=== PATIENT | male | born 1955 | race Caucasian/White ===

== ENCOUNTER 2020-01-25 01:18 | Emergency (ER) | payer BC ==
[~2020-01-25] VITALS: Ht 167.6 cm; Wt 57.6 kg
[2020-01-25] MEDS ORDERED: BIPOLAR MEDICATION (01:25)
[2020-01-25 02:06] LABS: BASOPHILS 0.7 % (0.0-2.0); HEMATOCRIT 33.6 % (42.0-52.0); HEMOGLOBIN 11.4 gm/dL (14.0-18.0); LYMPHOCYTES 28.4 % (24.0-44.0); MCH 31.1 pg (26.0-34.0); MCHC 33.9 g/dL (28.0-37.0); MONOCYTES 8.8 % (1.0-8.0); PLATELET COUNT 349 thou/uL (150-400); POLYS 61.1 % (36.0-66.0); RBC 3.65 mil/uL (4.50-6.00); RDW 14.8 % (10.5-14.5); WBC 8.2 thou/uL (4.0-11.0)
[2020-01-25 02:10] LABS: ANION GAP 4 mmol/L (7-16); BUN 31 mg/dL (7-18); CALCIUM 8.9 mg/dL (8.5-10.1); CHLORIDE 101 mmol/L (98-107); CO2 30 mmol/L (21-32); CREATININE 0.9 mg/dL (0.7-1.3); GLUCOSE 90 mg/dL (74-106); POTASSIUM 3.8 mmol/L (3.5-5.1); SODIUM 135 mmol/L (136-145)
[2020-01-25 02:12] LABS: URINE BILIRUBIN NEGATIVE (Negative); URINE BLOOD NEGATIVE (Negative); URINE CLARITY CLEAR; URINE COLOR YELLOW; URINE GLUCOSE-RANDOM* NEGATIVE (Negative); URINE KETONES NEGATIVE (Negative); URINE LEUKOCYTES-REFLEX NEGATIVE (Negative); URINE NITRITE-REFLEX NEGATIVE (Negative); URINE PROTEIN (DIPSTICK) NEGATIVE (Negative); URINE UROBILINOGEN 0.2 E.U./dl (0.2-1.0)
[2020-01-25 02:20] LABS: ALBUMIN 3.2 g/dL (3.4-5.0); SGOT 26 U/L (15-37); SGPT 30 U/L (30-65); TOTAL BILIRUBIN 0.2 mg/dL (0.2-1.0); TOTAL PROTEIN 6.2 g/dL (6.4-8.2); TROPONIN-I <0.06 ng/mL (<0.06)
[2020-01-25 02:56] VITALS: BP 120/67
--- NOTE | 2020-01-26 08:35 | EKG ---
[facility] [place] [address] ELECTROCARDIOGRAM REPORT Name: VINNIE SKY Room #: [facility]#: [id number] Admission: 01/25/20 Attend Phys: Discharge: 01/25/20 Date of : 51 Report #: [id number] THIS REPORT FOR: cc: [facility] - Clinic physician unknown [facility] - Clinic physician unknown Jose Edward MD [facility] ~ THIS REPORT FOR: //name// [facility] ED Test Date: 2020-01-25 Test Time: 01:38:01 Pat Name: VINNIE SKY Department: Room: Gender: M Supervisor Erection Shop: NO : 1955 Requested By: Srikanth Marshall Order Number: [id number] MD: Jose Edward Measurements Intervals [place] Rate: 80 P: 68 VA: 143 QRS: -26 QRSD: 120 T: 65 QT: 391 QTc: 451 Interpretive Statements Sinus rhythm Anterior Q waves, possibly due to LVH No previous ECG available for comparison Electronically Signed On 01-26-2020 8:34:57 CDT by Jose Edward [email or web address] <ELECTRONICALLY SIGNED> By: Jose Edward MD, [facility] 01/26/20 0834 0138 7 Jose Edward MD, [facility] /EPI
== END 2020-01-25 02:57 | disposition home or self-care (01) ==
LOC: ER 01:18
PROVIDERS: Emergency Medicine
DX: G62.9 Polyneuropathy, unspecified (principal); F32.9 Major depressive disorder, single episode, unspecified; F41.9 Anxiety disorder, unspecified; R42 Dizziness and giddiness; Z90.49 Acquired absence of other specified parts of digestive tract

== ENCOUNTER 2020-01-26 20:24 | Inpatient (IN) | payer BC ==
[~2020-01-26] VITALS: Ht 167.6 cm; Wt 59.2 kg
[~2020-01-26 20:24] MED LIST: BIPOLAR MEDICATION
[2020-01-26 20:26] VITALS: BP 109/59
[2020-01-26 21:12] LABS: URINE BILIRUBIN NEGATIVE (Negative); URINE BLOOD NEGATIVE (Negative); URINE CLARITY CLEAR; URINE COLOR YELLOW; URINE GLUCOSE-RANDOM* NEGATIVE (Negative); URINE KETONES NEGATIVE (Negative); URINE LEUKOCYTES-REFLEX NEGATIVE (Negative); URINE NITRITE-REFLEX NEGATIVE (Negative); URINE PROTEIN (DIPSTICK) NEGATIVE (Negative); URINE SPECIFIC GRAVITY 1.015 (1.005-1.035); URINE UROBILINOGEN 0.2 E.U./dl (0.2-1.0)
[2020-01-26 21:14] LABS: ABSOLUTE NEUTROPHILS 4.8 thou/uL (1.4-8.2); BASOPHILS 0.9 % (0.0-2.0); EOSINOPHILS 1.5 % (0.0-3.0); HEMOGLOBIN 11.2 gm/dL (14.0-18.0); LYMPHOCYTES 29.4 % (24.0-44.0); MCH 31.6 pg (26.0-34.0); MCHC 33.9 g/dL (28.0-37.0); MCV 93.1 fL (80.0-100.0); MONOCYTES 10.9 % (1.0-8.0); PLATELET COUNT 316 thou/uL (150-400); POLYS 57.3 % (36.0-66.0); RBC 3.55 mil/uL (4.50-6.00); WBC 8.4 thou/uL (4.0-11.0)
[2020-01-26 21:17] LABS: CALCIUM 8.9 mg/dL (8.5-10.1); CREATININE 1.2 mg/dL (0.7-1.3); POTASSIUM 3.7 mmol/L (3.5-5.1)
[2020-01-26 21:23] LABS: ALBUMIN 3.2 g/dL (3.4-5.0); TOTAL BILIRUBIN 0.2 mg/dL (0.2-1.0); TOTAL PROTEIN 6.3 g/dL (6.4-8.2)
--- NOTE | 2020-01-27 00:23 | NUR ---
MRS. SKY [phone]
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
[2020-01-27 07:30] VITALS: BP 110/63
--- NOTE | 2020-01-27 07:41 | EKG ---
[facility] [place] [address] ELECTROCARDIOGRAM REPORT Name: VINNIE SKY [facility] [id number] Admission: 01/27/20 Attend Phys: Darren Manzo DO Discharge: Date of : 51 Report #: [id number] THIS REPORT FOR: cc: Phil Hernandez MD, Jonathan MD Lundgren,Jose Burt MD [facility] ~ THIS REPORT FOR: //name// [facility] ED Test Date: 2020-01-26 Test Time: 21:13:06 Pat Name: VINNIE SKY Department: Room: [facility] Gender: M Services Coordinator: SOREN : 1955 Requested By: Srikanth Marshall Order Number: [id number] MD: Jose Edward Measurements Intervals [place] Rate: 74 P: 66 PA: 144 QRS: -22 QRSD: 124 T: 60 QT: 405 QTc: 450 Interpretive Statements Sinus rhythm Nonspecific intraventricular conduction delay Compared to ECG 01/25/2020 01:38:01 No significant change was found Electronically Signed On 01-27-2020 7:40:19 CDT by Jose Edward [email or web address] <ELECTRONICALLY SIGNED> By: Jose Edward MD, [facility] 01/27/20 0740 12 12 Jose Edward MD, [facility] /EPI
[2020-01-27 12:46] VITALS: BP 110/63
--- NOTE | 2020-01-27 12:58 | NUR ---
ASSUMED CARE AT 0700 TODAY. PT. UP, DRESSED AND ON THE UNIT. HE WILL INTERACT WITH STAFF UPON APPROACH ONLY. HE HAS BEEN SITTING ON THE UNIT, WATCHING TV AND SITTING ON THE SOFA. HE HAS POOR EYE CONTACT, LOOKING DOWN MUCH OF THE TIME. HIS AFFECT IS BLUNTED. MOOD BLAND. HE HAS BEEN PLEASANT AND COOPERATIVE WITH THIS RN. AT MEALS.
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
[2020-01-27 19:52] VITALS: BP 124/69
--- NOTE | 2020-01-27 23:09 | H ---
[facility] [place] [address] HISTORY AND PHYSICAL Name: VINNIE SKY Room #: 520A-A ADM IN M.R.#: [id number] Admission: 01/27/20 Attend Phys: Darren Manzo DO Discharge: Date of : 51 Report #: [id number] THIS REPORT FOR: cc: Phil Hernandez MD,Phil Manzo,Darren Burt DO ~ CC: Darren Hernandez Ezekiel Quinones DATE OF SERVICE: 01/27/2020 INPATIENT PSYCHIATRIC EVALUATION ATTENDING PHYSICIAN: Darren Manzo DO. PRODUCT SAFETY PROFESSIONAL: Umm Quiñones APRN and Guido Brock M.D. collaborator. REASON FOR ADMISSION: Severe jes. SOURCES OF INFORMATION: Interview with the patient, Emergency Room report. Of note, the patient was referred by a local psychiatrist, Dr. Marvin Shrestha. HISTORY OF PRESENT ILLNESS: This is a 64-year-old male, , who was brought by private vehicle yesterday evening for psychiatric evaluation at the request of Dr. Marvin Shrestha who is a psychiatrist here in [place], [place]. The patient reported he was "kind of out of control" and has been "doing things normal people don't do." He says he is walking a lot, not sleeping and disappearing. He describes 100-pound weight loss from 230 to 130 pounds over the last several months, though I do not have an exact timeline. His reported to the Emergency Room that he is at times delusional. She states he has had symptoms for 3 years, worsening over the last 3 months. Five days ago, he was started on 3 mg of Invega, which has now been increased to 12 mg. He says that he has doubled his sleeping time. He also states "I have always been in pain." In the ED and to me, he denied suicidal ideation, depression, fever, chills, night sweats or body aches. SURGICAL HISTORY: Includes cholecystectomy, abdominal rupture or tear 3 years of age. MEDICAL HISTORY: Colitis. PSYCHIATRIC HISTORY: Bipolar depression and anxiety. The patient has been noncompliant with outpatient medications. I do not have a good list of what has been tried, but he reports he has had trials and had [facility] [address] [place] [address] HISTORY AND PHYSICAL Name: VINNIE SKY Room #: 520A-A [facility] IN .R.#: [id number] Admission: 01/27/20 Attend Phys: Darren Manzo DO Discharge: Date of : 51 Report #: [id number] reactions adversely to lithium carbonate and Depakote. ALLERGIES: No known allergies. PRIMARY CARE PHYSICIAN: Unknown at this time. REVIEW OF SYSTEMS: From the Emergency Room: CONSTITUTIONAL: Denies fever or chills. EYES: Denies eye pain or visual change. HENT: Denies neck pain. RESPIRATORY: Denies cough or shortness of breath. CARDIOVASCULAR: Denies chest pain. GASTROINTESTINAL: Denies abdominal pain, nausea, vomiting or diarrhea. GENITOURINARY: Denies burning, frequency or dysuria. MUSCULOSKELETAL: Denies myalgias. SKIN: Denies rash. NEUROLOGIC: Denies weakness, headache or numbness. Otherwise, 10-point review of systems is negative. Weight is currently 56.84 kg, BMI 20.2. PHYSICAL EXAMINATION: In the ER grossly normal. He does have tattoos over bilateral extremities. Electrocardiogram was done in the ER. Results are as follows: Sinus rhythm, nonspecific intraventricular conduction delay, QTc 450, QT 405, MN interval 144 milliseconds, ventricular rate of 74. 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 FAMILY HISTORY: reports 2 children, 2 boys, 1 from cancer at age 33. Did not yet, but I do have reason to believe there is a family history of bipolar illness. LABORATORY DATA: The patient's laboratories are from the ER: He does have a significant anemia with hemoglobin 11.2 and 33.0, white count 8.4, platelet count 316. He believes that may be for nutrition. He denies signs of bleeding, but I do not believe a Hemoccult was done. Electrolytes: Sodium 136, potassium 3.7, chloride 101, bicarbonate 25, anion gap 10, BUN 32, creatinine 1.2, estimated GFR 61, glucose 168, calcium 8.9, total bilirubin 0.2, AST 27, ALT 31, alkaline phosphatase 80, total protein 6.3, albumin 3.2. Urinalysis was negative. [facility] [address] [place] [address] HISTORY AND PHYSICAL Name: VINNIE SKY Room #: 520A-A ADM IN M..#: [id number] Admission: 01/27/20 Attend Phys: Darren Manzo, Discharge: Date of : 51 Report #: [id number] Only medication over the last night was 2 mg p.o. b.i.d. of risperidone. He denies medications for any chronic illnesses. Physical examination, normal gait and station. Fair hygiene. MENTAL STATUS EXAMINATION: This is a well-developed male with poor speech. Attention intact. Concentration intact. Speech, increased rate, normal volume, normal tone. Thought process, linear and goal directed. Thought content, focused on getting on the "right medication." Denied suicidal intent or plan. Denied homicidal intent or plan. Denied hopelessness, helplessness. Memory not formally tested. Insight limited. Judgment fair. Fund of knowledge at least average. FORMULATION: A 64-year-old male presenting for acute jes. DIAGNOSES: At this time, bipolar 1 disorder, most recent episode manic, severe with psychotic features. CRIMINAL JUSTICE HISTORY: He has several arrests for trespassing. During this period of jes, I believe the last 6 months, states he has requested to change the venue from [place] to [facility]- he reported he would get fairer judges/trial in [facility]. PLAN: Evaluate, stabilize, obtain collateral. He is a voluntary patient. Start Tegretol-XR 200 mg p.o. b.i.d., first dose tonight at 9:00 p.m. Continue risperidone 2 mg p.o. b.i.d. I will be on vacation in the next several days. I would like provider covering for me to contact his for additional information. We will monitor sleep and appetite closely. He is a full code. STRENGTHS: He is insured. He has a fair degree of intelligence. WEAKNESSES: Chronic mental illness, medication noncompliance. <ELECTRONICALLY SIGNED> By: Darren Manzo DO 01/27/20 0009 [id number] Darren Manzo DO /nt
[2020-01-28 10:04] VITALS: BP 116/71
--- NOTE | 2020-01-28 11:25 | NUR ---
Pt's Gracie contacted FARHAD in tears because pt told her that he is discharging today. SW told Gracie she has not heard that for herself. Gracie said pt has been doing several things such as buying many cars; he just bought a 2019 Chevy Blazer on either Saturday or Saturday. It is still at the dealership. She said she does not know where he is getting this money from. FARHAD advised her to call the dealership and tell them where her is and why. They may undo that purchase because it is also in a short amount of time, and the car is still in their posession. She talked about pt walking for hours and taking her 8.5 year old dog out in the eat for hours, and allowing the dog to run free. She said she lives in fear everyday because pt does random things and makes random purchases when he is manic. She said she has been caring for pt for over 20 years. FARHAD advised that while she cannot tell her what to do about her marriage, she advised that she should care for herself first; she cannot take care of pt if she is not cared for. Gracie agreed. She said she has filed for divorce and has not rescinded it. She did say she would like to speak with the Dr. FARHAD provided an update to Dr. Pratt. FARHAD team will continue to follow pt during his stay on this unit.
--- NOTE | 2020-01-28 11:35 | NUR ---
Pt has displayed a variety of manic behaviors and thinking this morning during group and milieu interactions. He has gathered the patients to sign a "petition" on a paper trash bag stating, "we want out." He has also begun a chant in the day room. Pt is later heard planning a "alliance party" in which he is going to invite the entire unit to at his house- says he has a movie theatre in his basement. He then explains that he is only on the unit voluntarily due to his anger "issues", explaining that he hurt his , also pointing out how fit he is, flexing his biceps in the process. He believes he is going to discharge from the unit today.
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
[2020-01-28 19:37] VITALS: BP 115/67
[2020-01-28 21:00] VITALS: BP 115/67
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
[2020-01-29 07:56] VITALS: BP 117/79; BP 119/76
--- NOTE | 2020-01-29 09:41 | NUR ---
0700 ASSUMED CARE OF PATIENT, PATIENT UP AMB IN ROOM. PATIENT OBSERVED WITH LATEX GLOVES ON, PATRIOT MISSILE AIR DEFENSE ARTILLERY ASKS PATIENT TO REMOVE AND PATIENT IS COOPERATIVE. PATIENT TO DAYROOM FOR BREAKFAST, SITS WITH PEERS AND COMMUNICATES WELL. PATIENT OBSERVED INTERRUPTING ANOTHER PATIENTS CONVERSATION WITH THE NURSE AND PATRIOT MISSILE AIR DEFENSE ARTILLERY ASKED PATIENT TO PLEASE NOT INTERRUPT. PATIENT IS EASILY REDIRECTABLE. PATIENT CURRENTLY ATTENDING GROUP.
--- NOTE | 2020-01-29 12:49 | NUR ---
FARHAD contacted Zoey Campos with [employer] at [phone]; they would like to be involved in pt's care and case management. She gave FARHAD her fax number of [phone] to fax discharge documents. FARHAD team will continue to follow pt during his stay on this unit.
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
--- NOTE | 2020-01-29 19:19 | NUR ---
PATIENT SPOKE WITH SW AND TODAY. REQUESTS NO PHONE CALLS TILL FURTHER NOTICE. PATIENT DID GET UPSET WHEN TOLD NO PHONE. PATIENT IN ROOM WITH ROOMMATE AND BOTH TALKING ABOUT HOW THEY HAVE RIGHTS AND WANTING TO CALL 911. PATIENT NOTED TODAY HELPING OTHER AND PUSHING PATIENTS IN WC. PATIENT ASKED NOT TO PUSH PATIENTS AROUND. PATIENT IS EASILY REDIRECTABLE MOST OF THE TIME. REPORT GIVEN TO NEXT SHIFT
[2020-01-29 19:37] VITALS: BP 104/62
--- NOTE | 2020-01-30 05:39 | NUR ---
Assumed care of pt @ 1900. Pt calm et cooperative but continues to be attention seeking, manipulative, staff splitting, et intrusive. Pt took medications whole without difficulty. Ambulates the halls ad enrique with steady gait. Pt went to several staff members asking to use the phone this shift when he had already been informed by previous shift that he was not allowed to use the phone. Pt awakened at 0300 et stated that he could not go back to sleep. Pt was encouraged to return to bed but continued to ask staff for paper, pencils, puzzles, etc. VSWNL. Health assessment with no abnormalities other than previously noted. Denies SI/HI. Currently sitting in dayroom at table doodling on paper. Will continue to monitor per protocol.
[2020-01-30 08:21] VITALS: BP 123/80
--- NOTE | 2020-01-30 10:12 | NUR ---
0645 APON ARRIVAL TO UNIT PATIENT ASKS FOR PHONE AND RN RADIATION ONCOLOGY EXPLAINS TO PATIENT WE DO NOT ALLOW CALLS TO BE DONE TILL AFTER BREAKFAST. PATIENT STATES HE WILL USE IT AFTER BREAKFAST. PATIENT WAS REMINDED ABOUT AGREEMENT WITH SW ABOUT NO PHOEN USE. PATIENT STARTS CURSING AND YELLING HOW HE HAS A RIGHT TO USE THE PHONE AND CALL HIS . PATIENT TO DAYROOM AND SITS IN CHAIR SINGING AND HAPPY. PATIENT TAKES MEDICATION WHOLE WITHOUT DIFFICULTY. RN RADIATION ONCOLOGY OBSERVED PATIENT BEING INTRUSIVE WITH OTHER PEERS. RN RADIATION ONCOLOGY OBSERVED PATIENT WITH PHONE AND PATIENT HAD CALLED HIS . RN RADIATION ONCOLOGY RECIEVED CALL FROM AND EXPRESSED HOW ALL OF THIS HURTS HER AND HOW HARD THIS IS. RN RADIATION ONCOLOGY APPOLIGIZED FOR THE PHONE CALL SHE RECIEVED. 0920 ASSESSMENT COMPLETED . PATIENT STATES GOAL FOR TODAY IS TO HELP OTHER AND MEET NEW PEOPLE. PATIENT STATES CONCERN IS CONTROLING HIS ANGER. PT STATES "I KNOW I CALLED MY AND GOT MADE AND HAD A BLOWOUT WITH HER, IM TRYING TO CONTROL MY ANGER". PATIENT AND RN RADIATION ONCOLOGY DISCUSED THE PHONE PLAN AND PATIENT IS AWARE AND KNOWS HE IS NOT TO USE THE PHONE. WILL CONTINUE TO OBSERVE.
--- NOTE | 2020-01-30 11:44 | NUR ---
PATIENT GIVEN HALDOL 5MG IM FOR INCREASED AGITAION. PATIENT AT NURSES STATION HITTING ON GLASS AND YELLING WHEN HE WAS TOLD HE COULD NOT USE PHONE. PATIENT YELLING "I HAVE RIGHTS AND I WANT TO USE THE PHONE". YARD FOREMAN WAS ASSISTED BY STAFF X2 IN PATIENTS ROOM FOR INJECTION. WILL CONTINUE TO OBSERVE.
--- NOTE | 2020-01-30 18:34 | NUR ---
PATIENT SLEPT AFTER IM HALDOL AND WHEN PATIENT GOT UP PATIENT WALKING AROUND SAY HE WILL NOT TAKE MEDICATIONS AND STAFF WOULD HAVE TO GIVE HIM SHOTS. AFTER TALKING TO PATIENT, PATIENT HAD CALMED DOWN AND WAS WILLING TO TAKE HIS MEDS. SPOKE WITH PATIENTS TODAY AND EMAILED DPOA PAPER WORK OVER AND COPY HAS BEEN PLACED IN CHART. ALSO WANTED TO REPORT TO STAFF THAT ALCOHOL WAS FOUND HIDDEN IN HOUSE (CINNAMON WHISKY) IN PATIENTS ITEMS. PATIENT HAS BEEN CALM AT THIS TIME.
[2020-01-30 19:47] VITALS: BP 103/64
--- NOTE | 2020-01-31 00:15 | NUR ---
Pt was in the dayroom at time of assessment. Pt was cooperative with assessment. Pt denies anxiety and/or depression. Pt denies SI/HI. Pt took meds whole. Pt had urine on his shoes and socks. Unsure how he got them. Socks changed. Pant washed. Pt cleaned up. After about 2200, pt went in to have a shower. Nursing notified pt that its too late to have a shower. Pt informed pt to go to sleep. Pt was irritated and frustrated but obeyed. Pt currently in bed sleeping. Will continue to monitor.
--- NOTE | 2020-01-31 06:42 | NUR ---
Patient up this AM, angry. Verbally aggressive, threatening and demeaning to staff. Patient extremely labile. At one moment cursing at staff, the next smiling/laughing/singing. Patient upset about not being able to shave during morning rounds. Upset because he feels that each patient is not cared for. Intrusive with staff and peers.
[2020-01-31 09:06] VITALS: BP 116/71
--- NOTE | 2020-01-31 11:15 | NUR ---
Assumed care 0700. Denies SI/HI/AH/VH. Ambulates well, steady gait. Has blister left thumb, no indication of fluid filled. Denies complaints of pain after Tylenol took effect.
--- NOTE | 2020-01-31 18:20 | NUR ---
Became belligerent, argumentative, loud, angry verbal exchange with other patients, threatening violence. given Haldol 5 mg PO- PRN and stay in room until evaluated by the night nurse. He complied.
[2020-01-31 20:01] VITALS: BP 112/61
[2020-02-01 06:48] LABS: ABSOLUTE NEUTROPHILS 2.7 thou/uL (1.4-8.2); BASOPHILS 0.7 % (0.0-2.0); EOSINOPHILS 1.9 % (0.0-3.0); HEMOGLOBIN 12.1 gm/dL (14.0-18.0); LYMPHOCYTES 35.6 % (24.0-44.0); MCH 30.6 pg (26.0-34.0); MCHC 32.7 g/dL (28.0-37.0); MCV 93.6 fL (80.0-100.0); MONOCYTES 8.9 % (1.0-8.0); PLATELET COUNT 331 thou/uL (150-400); POLYS 52.9 % (36.0-66.0); RBC 3.96 mil/uL (4.50-6.00); RDW 15.4 % (10.5-14.5); WBC 5.2 thou/uL (4.0-11.0)
[2020-02-01 07:25] VITALS: BP 103/65
[2020-02-01 07:43] LABS: ALBUMIN 3.2 g/dL (3.4-5.0); CALCIUM 8.8 mg/dL (8.5-10.1); CREATININE 0.9 mg/dL (0.7-1.3); POTASSIUM 4.2 mmol/L (3.5-5.1); TOTAL BILIRUBIN 0.2 mg/dL (0.2-1.0); TOTAL PROTEIN 6.7 g/dL (6.4-8.2)
[2020-02-01 11:18] VITALS: BP 103/65
--- NOTE | 2020-02-01 12:01 | NUR ---
In tx team FARHAD was asked to schedule a family meeting for pt. FARHAD also was asked by Dr. Manzo to complete a SLUMS on patient. FARHAD received a call from Gracie Gillette asking for an update. FARHAD provided this update and scheduled a family meeting to occur in person on 02/01 @10:30. Gracie said pt does things like threaten to come home; staff did not know that pt was not to call Gracie this weekend and pt called her Saturday morning demanding her to bring him things. She refused to do so and pt became upset. Per Dr. Manzo, FARHAD advised Gracie do not have contact with pt for a min. of another 24 hours to give both pt and a cooling off period while he is being treated. She said she will do so. FARHAD completed a SLUMS with pt; pt scored 25/30. SW team will continue to follow pt during his stay on this unit.
--- NOTE | 2020-02-01 15:06 | NUR ---
1500 RESUMMED CARE FROM OVERNIGHT SHIFT THIS AM, PATIENT UP IN DAY ROOM CHATTING WITH OTHER PATIENTS. PATIENT TOOK MEDICATION WITHOUT INCIDENCE DENIES SI/HI/AH/VH AT PRESENT. PATIENTS ABDOMEN SOFT ROUND BOWEL SOUNDS PRESENT LUNGS CLEAR. PATIENT COOPERATIVE VERY FRIENDLY WITH OTHER PATIENTS WANTS TO DISCHARGE SOON PATIENT PARTICIPATES IN GROUP. WILL CONTINUE TO MONITOR PATIENT FOR SAFETY AND BEHAVIORS.
[2020-02-01 21:00] VITALS: BP 103/65
--- NOTE | 2020-02-02 00:37 | NUR ---
PATIENT CAME TO [facility] UNIT AT 2230 BY WC. HE IS A/OX2 AND FORGETFUL. HE WAS CALM AND COOPERATIVE. ASSESSMENT DONE AND WNL. LUNGS CTA BILATERALLY, HRR, ABDOMEN SOFT AND NON TENDER WITH POSITIVE BOWELSOUNDS. LBM 01/31/20 PER PATIENT. NO EDEMA NOTED. NO WOUNDS. SKIN INTACT. PATIENT DENIES PAIN. PATIENT AMBULATES WITH WALKER. HE DOES ADMIT THAT HE FORGETS TO USE IT ALOT. PATIENT IS COMING TO US FROM [facility]. HE WAS SENT TO US FOR SEXUAL INAPPROPRIATENESS WITH STAFF. HE WAS GRABBING STAFF'S GENITALS AND BECOMING AGGRESSIVE AND AGITATED. PATIENT'S DAUGHTER SEVERIANO GILBERT IS DPOA . A MESSAGE WAS LEFT ON HER VM TO CALL BACK TO CONSENT FOR TREATMENT. PATIENT IS A DNR. PATIENT WAS GIVEN A SNACK WHEN HE CAME TO UNIT AND HE ATE TILL HE WAS FULL. PATIENT HAS STEADY GAIT WHEN UP WITH WALKER. HE IS CONTINENT. NEW ORDERS RECEIVED BY WILTON MISHRA NP AND CARRIED OUT. Bertha JOHNSON NP FOR DR UMANA'S GROUP WAS NOTIFIED BY PHONE AND SPOKE WITH HER REGARDING NEW ADMIT. PATIENT IS UP WALKING THE HALLS D/T NOT TIRED. ORDER RECEIVED FOR TRAZADONE 25MG PO MAY REPEAT X1 AT HS. WILL CONTINUE TO MONITOR.
--- NOTE | 2020-02-02 07:48 | NUR ---
PATIENT HAS BEEN CALM AND COOPERATIVE. HE WAS UP WITH S/S OF GERD AND [place] 15CC GIVEN. HE DOES NOT HAVE A REGULAR MED FOR GERD AT THIS TIME BUT MAY BE GOOD TO BE CONSIDERED. PATIENT AMBULATES AND IS STEADY ON FEET. PATIENT UP IN DINING ROOM AT THIS TIME.
[2020-02-02 11:35] VITALS: BP 115/67
--- NOTE | 2020-02-02 12:53 | NUR ---
Up ambulating in unit without s/o distress. Alert and orientated X4. Denies SI/HI. Wants staff to call to request clothes. No other concerns. Breath sounds clear t/o. Reg HR auscultated. Color pink with brisk capillary refill and palpable peripheral pulses. Independent with voiding. Active bowel sounds over soft, rounded abdomen. States he had BM this AM. Skin healing on thumb, gentamycin ointment applied. called with clothes request. Plans on attending family mtg at 1030.
--- NOTE | 2020-02-02 13:05 | NUR ---
SW attended a family meeting with pt, his , and Dr. Manzo. Pt's current med regime was discussed. 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 Pt and his confessed that he has spent well over $100,000 in the past 6 months. Pt does not remember buying 2 other cars in addition to the 2019 RESPACE. Discharge was discussed to occur between -Saturday. Pt's will come back to the hospital and see if he tx has been successful enough to have him return.
--- NOTE | 2020-02-03 00:25 | NUR ---
Care assumed of patient at 1915: Patient wandering about the halls, bedroom and dayroom at start of shift. Patient hyperactive at times, impulsive with movements. Patient alert and oriented x4. Patient has rapid speech observed at times but is organized. Patient attempting to help several peers with ADLs cares and needed reminders on notifying staff. Patient singing loudly at random times for no apparent reason. Patient appears overly happy, smiling and dancing at times. Patient denies SI/HI/AH/VH. Denies depression and anxiety. Patient took HS medication whole without difficulty. Patient manipulative with staff regarding HS snack. Patient observed to have received 3 different HS snacks by 3 different staff members. No verbal aggression or threatening behaviors observed. Patient changed clothing and was observed to be rapidly pacing the hallways until approximately 2300. Patient encouraged to lay in bed and try to get some rest. Patient resting quietly in bed at this time.
[2020-02-03 08:00] VITALS: BP 124/80
--- NOTE | 2020-02-03 08:35 | NUR ---
PT WAIVING AT NURSES THIS AM AT DESK. PT IN A CHEERFUL MOOD. PT STATED HE WANTED TO PARTICIPATE IN GROUP TODAY. PT SINGING WITH OTHER RESIDENTS. PT TOOK MEDS WITHOUT ANY ISSUES. PT LUNGS CLEAR.
[2020-02-03 09:19] VITALS: BP 124/80
--- NOTE | 2020-02-03 11:20 | NUR ---
TALKED TO HIS JACOB. SHE SAYS NORMALY HIS BEHAVIOR IS TOO HIMSELF AND NOT HELPFUL TO OTHERS. SHE SAYS THAT SHE DOESN'T WANT HIM BACK IF HE IS NOT BETTER. SHE SAYS HE HAS BURNED BRIDGES WITH OTHER FAMILY. HE HAS A 7 AND 9 YEAR OLD THAT HE IS UNABLE TO TALK TOO DUE TO EXPARTE. JACOB ALSO HAD EXPARTE ON HIM, SHE CANCELED IT TO HELP HIM.
--- NOTE | 2020-02-03 11:36 | NUR ---
Pt came to FARHAD this morning stating that he wants to leave and that he has had enough treatment. SW brought him into her office and talked to him about his goals including MH court. FARHAD reminded him that he has to remain compliant in tx and get properly medicated to qualify for MH court. Pt agreed. He said he will stay. FARHAD reminded him of the plan to discharge Saturday - Saturday. He said he would rather leave Saturday. FARHAD told him she understood, but that he should wait until he hears from the doctor. SW team will continue to follow pt during his stay on this unit.
--- NOTE | 2020-02-03 11:51 | NUR ---
Emeka was present in recreation therapy group this morning. He continues to display various manic and hyperactive behaviors- unable to sit still in seat, talking over peers and bouncing from one topic to the next. He verbalized believing that he has found and is housing the skull of the "predator" from the movie. He also explained his belief that there are aliens on earth that came from [place] after the planet was no long inhabitable.
--- NOTE | 2020-02-03 11:55 | NUR ---
PT WRITING NOTES TO STAFF SAYING HE IS READY TO GO. 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 HE SAID HE GOT HIS SOCIAL SECURITY CHECK TODAY AND HE CAN STAY IN A HOTEL. PT SAID HE SEEN ANOTHER PT DISCHARGE AND SAID IF HE GOES THEN I CAN GO TOO.
--- NOTE | 2020-02-03 12:07 | NUR ---
RT Progress Note- Emeka Guzman" is very active in milieu and structured recreation therapy groups. Moreno has befriended various patients on the unit and is at times "overly" helpful- pushing their wheelchairs, announcing their needs, retrieving various items. He displays hyperactive and manic behaviors such as difficulty sitting still in groups, talking over peers, random outbursts of song and dance, etc. At times patient can be grounded and express understanding and insight in to the severity of his illness- even becoming tearful.
--- NOTE | 2020-02-03 14:43 | NUR ---
tHIS COUNTER SERVER WAS PAGED TO COME TO 5S TO NOTARIZE DOCUMENT REGARDING THIS PATIENT FOR A 36 HOUR HOLD.
--- NOTE | 2020-02-03 15:00 | NUR ---
DID TALK TO ABOUT HOW THIS PATIENT IS. SHE STATED NORMALY HE STICKS TO HIMSELF AND IS NOT HELPFUL TO OTHER PEOPLE OR GETTING INTO THEIR BUISNESS. SHE SAYS HE LIKES TO SPEND MONEY AND IS SNEAKY ABOUT IT.
[2020-02-03 20:13] VITALS: BP 128/72
--- NOTE | 2020-02-04 01:26 | NUR ---
Care assumed of patient at 1915: Patient hyperactive and moving about the dayroom, hallways and his bedroom at start of shift. Patient observed sitting with several different peers. One peer was upset and verbalize concerns. This patient appeared to be instigating other peers anger and assisted with starting a chant. Patient has been attention seeking at times. Coming to the nurses station, interupting others, singing loudly, dancing. Patient observed assisting his roomate with ADL cares. This patient needed re-direction to notify staff and allow for staff to assist other peers. Patient apologetic, stated "oh, I know" then continued to assist roomate. This patient was asked to leave the room while ADL cares were completed with roomate. Patient denies SI/HI/AH/VH. 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 Patient stated that he discussed this with dayshift nurse so he can "start in the morning". Patient intrusive with other peers and staff. Needing several reminders on respecting boundaries. Patient manipulative with snack time, yet again. Received 4 different snacks from 4 different staff members. Nurse approached patient with HS medication. Patient stated he needed something to eat before he took his medication. Nurse informed patient that he had already had 4 different snacks. Patient stated "oh ya, I forgot" then took medication. Patient has been able to sleep for approximately 45 minutes then is up pacing from dayroom to bedroom. Once he is re-directed back to bed, patient is able to fall asleep rather quickly. Patient denies anxiety and depression. Smiles rather largely and states "I'm Great!".
--- NOTE | 2020-02-04 10:47 | NUR ---
Moreno was walking by a peer. The peer was c/o of pain. Moreno stated "Maybe you need to have an MRI." I asked him if he was a phyisican. He stated "no". I asked him not to give medical advice. He stated "I wasn't giving medical advice, I was given personal advice. I have had MRI's before."
--- NOTE | 2020-02-04 10:59 | NUR ---
FARHAD contacted Alyssa with [facility] to provide an update on pt. FARHAD also suggested pt attend grief and loss classes while he is in their program. SW team will continue to follow pt during his stay on this unit.
[2020-02-04 14:13] VITALS: BP 128/72
[2020-02-04 16:21] VITALS: BP 109/68
--- NOTE | 2020-02-04 17:22 | NUR ---
ASSUMED CARE AT 0700 THIS MORNING. PT. UP IN SHORTS AND T-SHIRT. HE HANDED THIS RN A NOTE STATING HE WANTS HIS TO BRING HIM MORE CLOTHING. REQUEST DENIED HE HAD CLOTHING IN THE DRYER. HE WAITED FOR THE CLOTHING TO DRY AND CHANGED HIS CLOTHING. HE AGAIN REQUESTED AT SUPPER TIME FOR US TO CALL HIS FOR A NEW CHANGE OF CLOTHING. HE WAS REMINDED HE HAD CHANGED CLOTHES TO CLEAN CLOTHING TODAY. HE STATED, "NOW THEY ARE BOTH DIRTY". HE WAS INFORMED WE CAN WASH THE ONES HE TOOK OFF THIS MORNING. HE TOOK HIS MEDICATIONS WITHOUT DIFFICULTIES NOTED. THIS MORNING HE WAS CAUGHT ATTEMPTING TO INSTIGATE OTHER PATIENTS TO CAUSE PROBLEMS WITH STAFF. THIS RN TOLD HIM THIS WAS INAPPROPRIATE AND HE NEEDED TO STOP THE BEHAVIORS. HE DID STOP AFTER BEING TOLD TIMES TWO TO STOP BY STAFF.
[2020-02-04 19:17] VITALS: BP 113/74
--- NOTE | 2020-02-05 00:26 | NUR ---
Care assumed of patient at 1915: Patient seated in dayroom at start of shift. Patient pacing several times from his room to the dayroom and about in the hallways. Patient intrusive with other peers and staff. Patient going into other peer rooms despite being re-directed to stay out of peer rooms. Patient alert and oriented x3, disoriented on current time. Denies pain or discomfort. When asked how he was feeling, patient stated "I'm great, just parcel post clerk!" with a big smile and great attitude. Several minutes later, patient was re-directed out of another peers room when he became agitated, yelling and cursing. Patient has been labile this evening, more restless than the last 2 nights. Patient took HS medication whole without difficulty. Less manipulative this evening. Ate 100% HS snack. Patient retired to bed at a reasonable hour and appeared to be resting quietly. Patient was soon awake and slammed his door shut. Nurse opened door and provided education on leaving door cracked open. Patient said "I understand but then started to yell at nurse". Patient has been up and down several times this evening. When patient gets up, he hands nurse a new hand written note. One note was for the nurse to call his to "ask about clothes, and toothpaste and mouthwash. I have a 10:00 appointment with Kanika and the sports attorney. Moreno Lassiter". Patient was observed pacing the halls when he hit another peers door that was cracked, causing it to slam open. Patient re-directed that he could not be disturbing other peers, especially while they were sleeping. Patient became angry, yelling, denying that he did anything wrong. Patient was then asked to stay in his room or in the dayroom only. Patient then went to his room and slammed the door. Patient later observed pacing the halls around 0, singing loudly and disturbing the mileau, required re-direction. Patient appears to be laying in bed quietly at this time.
[2020-02-05 07:15] VITALS: BP 116/75
--- NOTE | 2020-02-05 11:41 | NUR ---
HAS BEEN COOPERATIVE WITH REQUESTS FROM STAFF THIS AM-FULL RANGE AFFECT IS MILDLY HYPERVERBAL,CIRCUMSTANTIAL AT TIMES BUT IMPROVED FROM PREVIOUS SHIFTS. NEEDS REMINDERS TO NOT BE EXCESSIVLY CARETAKING OF PEERS. IS COMPLIENT WITH REQUESTS FROM STAFF WITHOUT RESISTANCE. DENIES C/O PAIN/DISCOMFORT. DENIES SI/SH/HI. ATTENDING SCHEDULED ACTICITES. NO NOTED OR REPORTED PSYCHOSIS/OR ACUTE ANXIETY. GAIT STEADY WITHOUT ASSISTIVE DEVICES.
--- NOTE | 2020-02-05 13:26 | NUR ---
In tx team pt's behavior from last night was discussed. At that time, Dr. Manzo decided that filing a petition for a 21 day stay is appropiate. FARHAD completed documents for a 21 day stay for pt; FARHAD faxed documents to Bj Sheppard and to the court house. SW provided pt's with an update. FARHAD and the RT staff went to pt and provided him and update on what happened. When pt became slightly upset, FARHAD explained that this does not mean he will be here 21 days, but that the doctor believes he will benefit from that. She explained the courts will decide if he is an appropiate candidate. Pt said "I'm not staying here 21 days." He became calm and got ready to attend group therapy. SW team will continue to follow pt during his stay on this unit.
[2020-02-05 20:00] VITALS: BP 92/58
--- NOTE | 2020-02-06 02:39 | NUR ---
Care assumed of patient at 1915: Patient speaking with MD at start of shift. MD and patient approached this nurse asking if his clothing could be washed tonight. Nurse asked patient to place his clothing on the window seal and during the night, his clothes would be washed. Patient became fixated on his clothes being washed and asked several staff members to wash his clothing. Reminded that this nurse would wash them. Patient jovial and happy. Less intrusive with peers and staff this evening. Patient took HS medication whole without difficulty. Ate 100% HS snack. No incontinent episodes of bladder observed thus far this shift. Patient denied pain or discomfort. Denies SI/HI/AH/VH. Denies anxiety and depression. Patient expansive with thoughts when asked about pain or depression. Patient saw a suitcase behind the nurses station and asked several people if that was his, did his bring it for him. Patient has been able to sleep for longer periods this shift. Each time patient wakes up, he comes to the dayroom, speaks to all staff present, sits in a chair for a few minutes, then returns back to bed. Patient laundry has been completed and is in his room.
[2020-02-06 07:50] VITALS: BP 113/69
[2020-02-06 10:25] VITALS: BP 113/69
--- NOTE | 2020-02-06 12:38 | NUR ---
1200 RESUMMED CARE FROM OVERNIGHT SHIFT THIS AM, PATIENT IN ROOM GETTING HYGIENE DONE FOR BREAKFAST. PATIENT ATE BREAKFAST TOOK MEDICATION WITHOUT INCIDENCE. PATIENTS ABDOMEN SOFT ROUND BOWEL SOUNDS PRESENT PATIENT HAD A BOWEL MOVEMENT THIS AM. PATIENTS LUNGS CLEAR DENIES SI/HI/AH/VH AT PRESENT, PATIENTS CALLED TO CHECK ON PATIENT AND TO CHECK ABOUT HIS COURT DATE. PATIENT SENT A PAIR OF BLUE JEANS AND BLUE AND WHITE SHIRT AND A PAIR OF LOVE TRIMMED WITH BLACK TO THE ER. BELONGINGS ADDED TO PROPERTY SHEET, PATIENT LESS ANXIOUS CALM INTERACTS WITH OTHER PATIENTS. WILL CONTINUE TO MONITOR PATIENT FOR SAFETY AND BEHAVIORS.
--- NOTE | 2020-02-07 02:36 | NUR ---
02-06-20 CARE TRANSFERED 1914 PT SITTING IN DAY ROOM WATCHING TV. 1940 PT AAOX3 SITTING IN DAY ROOM, PT CLAM AND COOPERATIVE THROUGHOUT NURSING ASSESSMENT. VSS, RR EVEN AND NONLABORED ON RA; PT DENIES SI/SH/HI/VAH AND PAIN AT THIS TIME. PT HAD ZERO ISSUES DURING MEDICATION ADMIN. OF NOTE, PLEASE REFER TO NURSING INTERVENTIONS FOR MORE INFORMATION. ZERO ACUTE DISTRESS NOTED. WILL CONTINUE TO MONITOR PER [facility] UN[facility] PROTOCOL.
[2020-02-07 08:58] VITALS: BP 113/68
[2020-02-07 20:02] VITALS: BP 111/63
[2020-02-07 22:00] VITALS: BP 111/63
--- NOTE | 2020-02-08 00:34 | NUR ---
Assumed care of patient this pm shift. Patient in good spirits, calm and cooperative. Patient is medication adherent. Patient takes medications whole with thin fluids. Patient is continent of bowel and bladder. Patient is alert and oriented x4. Patient is ambulatory with a steady gait. Patient denies pain. Patient denies hi/si. Patients assessment shows no signs of acute distress. Patient is very neat and clean and has his clothes laundered frequently. We will continue to monitor per hospital protocol.
[2020-02-08 06:02] LABS: EOSINOPHILS 1.9 % (0.0-3.0); HEMATOCRIT 36.9 % (42.0-52.0); HEMOGLOBIN 12.5 gm/dL (14.0-18.0); LYMPHOCYTES 29.2 % (24.0-44.0); MCH 31.3 pg (26.0-34.0); MCHC 33.8 g/dL (28.0-37.0); MCV 92.6 fL (80.0-100.0); MONOCYTES 9.9 % (1.0-8.0); PLATELET COUNT 375 thou/uL (150-400); RBC 3.99 mil/uL (4.50-6.00); WBC 6.9 thou/uL (4.0-11.0)
[2020-02-08 06:26] LABS: ALBUMIN 3.2 g/dL (3.4-5.0); CALCIUM 8.7 mg/dL (8.5-10.1); PHOSPHORUS 3.5 mg/dL (2.5-4.9); POTASSIUM 3.9 mmol/L (3.5-5.1); TOTAL BILIRUBIN 0.1 mg/dL (0.2-1.0); TOTAL PROTEIN 6.5 g/dL (6.4-8.2)
[2020-02-08 06:41] LABS: TSH 2.484 uIU/mL (0.358-3.740)
[2020-02-08 07:45] VITALS: BP 103/67; BP 154/84
[2020-02-08 10:17] VITALS: BP 103/67
--- NOTE | 2020-02-08 12:14 | NUR ---
Followup 02/07: consistently eating 100% of meals and wt up 5 lb since admission to [facility] following previous reported 100 lb loss. Started on B12 supplementation for level 424 and vitamin D pending. Will change nutrition status to low risk
--- NOTE | 2020-02-08 13:07 | NUR ---
1230RESUMMED CARE FROM OVERNIGHT SHIFT THIS AM, PATIENT IN DAY ROOM TALKING WITH OTHER PATIENTS. PATIEENT ATE BREAKFAST TOOK MEDICATION WITHOUT INCIDENCE. PATIENT DENIES SI/HI/AH/VH AT PRESENT, PATIENTS ABDOMEN SOFT BOWEL SOUNDS PRESENT LUNGS CLEAR. PATIENT'S COURT APPOINTED HYDRANT SETTER CAME AND TALKED WITH PATIENT ABOUT COURT PRECEEDING TOMMOROW REGARDING 21 DAY HOLD. PATIENT VERY RECEPTIVE COOPERATIVE PLESANT TRYS TO HELP OTHER PATIENTS. WILL CONTINUE TO MONITOR PATIENT FOR SAFETY AND BEHAVIORS.
--- NOTE | 2020-02-08 18:24 | NUR ---
FARHAD spoke to Franchise Business Consultant Jomar Wynn [phone]. He inquired about the medical records being sent to him today. FARHAD informed that Extracorporeal Technician Lucila would be sending him the medical record in an encrypted file today. Mr. Wynn also inquired about how patient did over the weekend. FARHAD provided an update via pt medical record and personal interaction with patient. Patient's hearing is scheduled for 02/09/20 @ 9 am. Patient has been notified.
--- NOTE | 2020-02-08 18:29 | NUR ---
FARHAD spoke to , Gracie with Dr. Manzo. She informed the restraining order is still currently in place. She reports she has been working with an associate attorney to get it dismissed. She also reports their divorce is still pending and she is not sure what she is going to do with that. Patient reports she is ok with patient returning to their home if he is discharged on 02/08 but she expressed much apprehension because patient has been off his medication for so long. She reports they have been almost 40 yrs and she "does not know this person." FARHAD advised she would be notified of the results of the hearing. Received a message later this date that Gracie had been trying to reach FARHAD. FARHAD returned her call and left a voice message.
[2020-02-08 20:13] VITALS: BP 95/56
--- NOTE | 2020-02-09 01:51 | NUR ---
Received a phone call from , Gracie, who expressed concern that Moreno thinks his hearing is about his going to half-way, that she explained to him that it is about staying 21 days in the hospital, but that he is confused and not clear. Expressed concern and hope that the building maintenance supervisor will see that Moreno needs further medical care, that he is not himself. She asked that I speak to patient and explain to him that the building maintenance supervisor will be deciding about him staying in the hospital, not about him going to half-way. When this nurse had a conversation with patient explaining that the 21 days would be done in [facility], and not in half-way, he stated that he understood this.
--- NOTE | 2020-02-09 01:55 | NUR ---
In the mileu, socializing with peers and watching baseball on television. Cooperated with assessment and compliant with medication. HRRR, Lungs CTA, ABD flat and soft with bowel sounds noted. Reports BM today. A&Ox4, reports is in [facility] in [facility] for anger issues. Denies Depression, Anxiety, AH, and VH. States that he feels great and has no pain. In bed with eyes closed, respirations even and unlabored, bed in low position at this time. Will continue to monitor q 12 minutes for patient safety.
--- NOTE | 2020-02-09 06:35 | NUR ---
SLEPT 9 HOURS OVERNIGHT
[2020-02-09 09:29] VITALS: BP 111/64
[2020-02-09] MEDS ORDERED: TEGRETOL XR100 MG PO (10:45)
[2020-02-09] MEDS ORDERED: HALOPERIDOL 5 MG5 MG PO (10:47)
[2020-02-09] MEDS ORDERED: PROTONIX40 M1 PO (10:48)
[2020-02-09] MEDS ORDERED: B-12500 MCG PO (10:48)
--- NOTE | 2020-02-09 11:52 | NUR ---
FARHAD D/C Note SW attending a court hearing today regarding pt's 21 day petition; the area field person denied keeping pt for another 21 days. After the hearing FARHAD talked with pt who agreed he would reconnect with [facility]. FARHAD again advised him to be compliant with his medications, psych appts, outpatient therapy, and anything else needed for mental health court so that he can get his charges converted. He said he would. FARHAD also advised pt to stay away from the area ([place]) in which he has the majority of his charges. FARHAD received notice from pt's nurse that pt wanted to be taxi'd to a hotel near where the majority of his charges are. FARHAD received a call from pt's Gracie. FARHAD relayed to her where pt was wanting to be d/c'd to. She said she would come pick pt up at 1330 instead. She is not in agreement with the area field person's decision. FARHAD contacted Alyssa with [facility] and provided her an update on pt's d/c. FARHAD contacted Zoey Campos with [facility] and provided her an update on pt's status as well. FARHAD faxed documents to both [facility] and [facility].
--- NOTE | 2020-02-09 13:15 | NUR ---
PATIENT CARE ASSUMED AT 0700 - PLEASANT AND AGREEABLE. STATED WAS EAGER TO DISCHARGE HOME. CLAIMS UNDERSTANDS COMMITTMENT TO MED COMPLIANCE. CONCERNED WITH HAVING TO STAY ANOTHER 21 DAYS WHEN DISCUSSED EARLIER THIS MORNING. STILL EXHIBITS GRIEF EPISODES WHEN SON DISCUSSED. PATIENT HAD MEETING WITH DISCIPLINARY TEAM AND MEDICAL LABORATORY MANAGER AND LINING CUTTER AT 9AM. DISCUSSED BEHAVIOR AND EXPECTATIONS ONCE DISCHARGED - ADAMANT TO MAINTAIN TREATMENT PLAN. PATIENT HAPPY TO HEAR BEING DISCHARGED AND PICKING HIM UP AT 1:30 PM - MED COMPLIANT - NO OUTBURSTS HAVE BEEN OBSERVED. REMORSEFUL ON EVENTS THAT HAVE LED TO HIS STAY AT OUR FACILITY. HAD BREAKFAST AND LUNCH - ATE WELL.
--- NOTE | 2020-02-09 13:36 | NUR ---
PATIENT DISCHARGED HOME AT 1:30 - PICKED PATIENT UP AT EMERGENCY ENTRANCE. ESCORTED DOWN WITH STAFF. BELONGINGS CHECKED OFF - PRESCRIPTIONS AND DOCUMENTATION. DISCUSSED OUTPATIENT TREATMENT COMMITTMENTS NEEDED. AMBULATORY PERSONNEL ITEMS TO BE PICKED UP AT SECURITY DESK. PATIENT CALM - AND COOPERATIVE -
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
== END 2020-02-09 13:47 | disposition home or self-care (01) | DRG 885 ==
LOC: ER 20:24 → SBH 01-27 00:22 → EROBS 01-27 00:22 → SBH 01-27 01:19
PROVIDERS: Emergency Medicine; Internal Medicine; Psychiatry & Neurology Psychiatry; ADMIT Psychiatry & Neurology Psychiatry; ATTEND Psychiatry & Neurology Psychiatry
DX: F31.10 Bipolar disorder, current episode manic without psychotic features, unspecified (principal); E44.0 Moderate protein-calorie malnutrition; F23 Brief psychotic disorder; D64.9 Anemia, unspecified; E78.5 Hyperlipidemia, unspecified; J45.909 Unspecified asthma, uncomplicated; F41.9 Anxiety disorder, unspecified; T23.212A Burn of second degree of left thumb (nail), initial encounter; X08.8XXA Exposure to other specified smoke, fire and flames, initial encounter; Y93.89 Activity, other specified; Y92.89 Other specified places as the place of occurrence of the external cause; Y99.8 Other external cause status; Z68.21 Body mass index [BMI] 21.0-21.9, adult; Z90.49 Acquired absence of other specified parts of digestive tract; Z91.14 Patient's other noncompliance with medication regimen; Z86.010 Personal history of colon polyps
CPT/HCPCS: 10880